=== PATIENT | female | born 1950 | race Asian ===

== ENCOUNTER 2018-10-20 15:50 | Emergency (ER) | payer OTHER ==
[~2018-10-20] VITALS: Ht 154.9 cm; Wt 54.4 kg
[2018-10-20 15:59] VITALS: Ht 154.9 cm; Wt 54.4 kg
[2018-10-20 17:56] VITALS: BP 124/88
== END 2018-10-20 17:56 | disposition home or self-care (01) ==
LOC: ED 15:50
DX: S20.212A Contusion of left front wall of thorax, initial encounter (principal); S20.211A Contusion of right front wall of thorax, initial encounter; E11.9 Type 2 diabetes mellitus without complications; K74.60 Unspecified cirrhosis of liver; V49.9XXA Car occupant (driver) (passenger) injured in unspecified traffic accident, initial encounter; Y93.I9 Activity, other involving external motion; Y92.413 State road as the place of occurrence of the external cause; Y99.8 Other external cause status
CPT/HCPCS: J1885